=== PATIENT | female | born 1960 | race Caucasian/White ===

== ENCOUNTER 2018-07-23 05:27 | Day surgery (SDC) | payer OTHER ==
[2018-07-22 13:20] LABS: ADD MAN DIFF? NO
[2018-07-22 13:22] LABS: WHITE BLOOD COUNT 6.2 10^3/ul (4.8-10.8)
[2018-07-22 13:22] LABS: BASOPHILS % 0.5 % (0.0-2.0); EOSINOPHILS # 0.3 10^3/ul (0.0-0.5); EOSINOPHILS % 5.4 % (0.0-7.0); HEMATOCRIT 40.2 % (37.0-47.0); HEMOGLOBIN 13.4 g/dl (12.0-16.0); LYMPHOCYTES # 1.7 10^3/ul (0.8-2.9); MEAN CORPUSCULAR HEMOGLOBIN 29.8 pg (29.0-33.0); MEAN CORPUSCULAR HGB CONC 33.3 g/dl (32.0-37.0); MEAN CORPUSCULAR VOLUME 89.5 fl (82.0-101.0); MEAN PLATELET VOLUME 10.7 fl (7.4-10.4); MONOCYTE # 0.5 10^3/ul (0.3-0.9); MONOCYTES % 8.1 % (0.0-11.0); NEUTROPHIL # 3.6 10^3/ul (1.6-7.5); NEUTROPHILS % 58.8 % (39.0-77.0); PLATELET COUNT 270 10^3/UL (140-415); RED BLOOD COUNT 4.49 10^6/ul (4.20-5.40); RED CELL DISTRIBUTION WIDTH 12.6 % (11.5-14.5)
[2018-07-22 13:41] LABS: INR 0.84; PROTIME 11.6 Sec (11.9-14.9); PT RATIO 0.9
[2018-07-22 13:42] LABS: PARTIAL THROMBOPLASTIN TIME 26.8 Sec (23.0-35.0)
[2018-07-22 13:43] LABS: ALANINE AMINOTRANSFERASE 27 IU/L (13-69); ALBUMIN 4.3 g/dl (3.3-4.9); ALBUMIN/GLOBULIN RATIO 1.26; ALKALINE PHOSPHATASE 95 IU/L (42-121); ANION GAP 8 (5-13); ASPARTATE AMINO TRANSFERASE 20 IU/L (15-46); BILIRUBIN,INDIRECT 0.6 mg/dl (0-1.1); BILIRUBIN,TOTAL 0.6 mg/dl (0.2-1.3); BLOOD UREA NITROGEN 14 mg/dl (7-20); CALCIUM 9.4 mg/dl (8.4-10.2); CARBON DIOXIDE 32 mmol/L (21-31); CHLORIDE 101 mmol/L (97-110); CREATININE 0.58 mg/dl (0.44-1.00); Estimated GFR > 60 mL/min (>60); GLUCOSE 108 mg/dl (70-220); SODIUM 141 mmol/L (135-144); TOTAL PROTEIN 7.7 g/dl (6.1-8.1)
[2018-07-23] MEDS ORDERED: FENTAnyl 50 MCG/ML VIAL ×2 (06:41→06:42)
[2018-07-23] MEDS ORDERED: PROPOFOL 20 ML (06:41)
[2018-07-23] MEDS ORDERED: CEFAZOLIN 1 GM INJ (06:41)
[2018-07-23] MEDS ORDERED: LIDOCAINE 2% (SDV) 5 ML INJ (06:41)
[2018-07-23] MEDS ORDERED: MIDAZOLAM 1 MG/ML 2 ML INJ (06:41)
[2018-07-23] MEDS ORDERED: ROPIVACAINE 0.5 % 30 ML VIAL (06:42)
[2018-07-23] MEDS: LACTATED RINGER'S 1,000 ML IV (07:21)
[2018-07-23] MEDS: CEFAZOLIN 2 GM/50 ML (PMX) 50 ML (FOR WT < 120 KG) IVPB (07:48)
[2018-07-23] MEDS ORDERED: ONDANSETRON 4 MG INJ (07:55)
[2018-07-23] MEDS ORDERED: DEXAMETHASONE 4 MG/ML 5 ML INJ (07:55)
[2018-07-23] MEDS ORDERED: METOCLOPRAMIDE 10 MG INJ ×2 (07:55→12:07)
[2018-07-23] MEDS ORDERED: FAMOTIDINE 20 MG INJ (07:55)
[2018-07-23] MEDS: POLYMYXIN/BACITRACIN 1L IRRIG IRR (08:22)
[2018-07-23] MEDS ORDERED: hydrALAzine 20 MG INJ IV (08:30)
[2018-07-23] MEDS ORDERED: HYDROmorphONE 1 MG/5 ML IV SYRINGE IV (08:30)
[2018-07-23] MEDS ORDERED: OXYCODONE/ACETAMINOPHEN (5/325) TAB PO (08:30)
[2018-07-23] MEDS ORDERED: MEPERIDINE 25 MG INJ IV (08:30)
[2018-07-23] MEDS ORDERED: LABETALOL HCL 20MG INJ IV (08:30)
[2018-07-23] MEDS: ONDANSETRON 4 MG INJ IV ×2 (11:26→13:16)
[2018-07-23] MEDS: HYDROmorphONE 1 MG/5 ML IV SYRINGE IV ×3 (11:28→11:49)
[2018-07-23] MEDS: OXYCODONE/ACETAMINOPHEN (5/325) TAB PO ×2 (12:05→13:16)
[2018-07-23] MEDS ORDERED: morphine 2 MG INJ (12:07)
[2018-07-23] MEDS: morphine 2 MG INJ IV (12:13)
[2018-07-23] MEDS: METOCLOPRAMIDE 10 MG INJ IV (12:16)
[2018-07-23] MEDS: morphine 4 MG/ML VIAL IV (12:17)
[2018-07-23] MEDS: FAMOTIDINE 20 MG INJ IV (13:28)
== END 2018-07-23 14:40 | disposition home or self-care (01) ==
LOC: SDS 05:27
DX: S52.572A Other intraarticular fracture of lower end of left radius, initial encounter for closed fracture (principal); S52.602A Unspecified fracture of lower end of left ulna, initial encounter for closed fracture; R94.31 Abnormal electrocardiogram [ECG] [EKG]
CPT/HCPCS: 25609; 71045; 73110-LT; 80053; 85025; 85610; 85730; 93005